=== PATIENT | male | born 1990 | race Caucasian/White ===

== ENCOUNTER 2016-08-20 16:31 | Emergency (ER) | payer BC ==
[2016-08-20 17:20] VITALS: BP 108/63; PULSE 78; RESP 18; TEMP 98.3
[2016-08-20] MEDS ORDERED: IBUPROFEN 600 MG TAB PO STA (17:25)
--- NOTE | 2016-08-20 17:31 | ED ---
General Adult HPI - General Chief complaint: Extremity Injury, Upper Stated complaint: Pulled Muscle in Chest Time Seen by Provider: 08/20/16 17:22 Source: patient, RN notes reviewed Mode of arrival: ambulatory - History of Present Illness Initial comments: This is a 24-year-old male presents with a muscle pain to the left side chest. Patient states he was lifting a couch last night when he put the couch back down he felt a pulled muscle sensation, but he kept lifting. Patient states pain is worse with twisting, reaching his left arm behind him and with taking a deep breath. Patient did not take anything for the pain. Patient denies any shortness of breath, radiation of the pain or numbness/weakness/tingling. Patient denies any recent fever, chills, chest pain, abdominal pain, nausea/ vomiting/diarrhea, back pain, numbness, tingling, hematuria, headache, or visual changes, or any other complaints. - Related Data Allergies Allergy/AdvReac Type Severity Reaction Status Date / Time No Known Allergies Allergy Verified 08/20/16 17:20 Review of Systems ROS Statement: Those systems with pertinent positive or pertinent negative responses have been documented in the HPI. ROS Other: All systems not noted in ROS Statement are negative. Past Medical History Past Medical History: No Reported History History of Any Multi-Drug Resistant Organisms: None Reported Past Surgical History: No Surgical Hx Reported Past Psychological History: No Psychological Hx Reported Smoking Status: Never smoker Past Alcohol Use History: None Reported Past Drug Use History: None Reported General Exam - General Exam Comments Initial Comments: General: The patient is awake and alert, in no distress, and does not appear acutely ill. Neck: The neck is supple, there is no tenderness or JVD. Cardiovascular: There is a regular rate and rhythm. No murmur, rub or gallop is appreciated. Respiratory: Lungs are clear to auscultation, respirations are non-labored, breath sounds are equal. No wheezes, stridor, rales, or rhonchi. Musculoskeletal: Patient has tenderness to the left side chest with twisting to the left and with extension of the left upper extremity. No erythema, ecchymosis or swelling. There is no rash. Patient has full range of motion, strength 5/5 and Sensation intact. Radial pulses 2+ bilaterally. Neurological: A&O x 3. CN II-XII intact, There are no obvious motor or sensory deficits. Coordination appears grossly intact. Speech is normal. Skin: Skin is warm and dry and no rashes or lesions are noted. Psychiatric: Normal mood and affect. Course Vital Signs 08/20/16 17:16 Temperature 98.3 F Pulse Rate 78 Respiratory 18 Rate Blood Pressure 108/63 O2 Sat by Pulse 98 Oximetry Medical Decision Making - Medical Decision Making This is a 22-year-old male with muscular pain to the left chest. On physical exam Patient has tenderness to the left side chest with twisting to the left and with extension of the left upper extremity. No erythema, ecchymosis or swelling. There is no rash. Patient has full range of motion, strength 5/5 and Sensation intact. Radial pulses 2+ bilaterally. Chest x-ray is done and reviewed showing: There is no focal airspace opacity, pleural effusion, or pneumothorax seen. The cardiac silhouette size and normal limits. The osseous structures are intact. No acute process. Reported by Dr. Nunez. Patient was given Motrin in the EC today. Discussed ice and heating pads to the area and continuation of Motrin and Tylenol for pain. I discussed the patient to refrain from activities that cause increased pain to allow healing. I discussed return parameters. Discussed that patient should follow up with PCP in one to 2 days or return to the [facility] for any worsening symptoms or for any further concerns. Patient was receptive to this plan and patient will be discharged home. Disposition Clinical Impression: Muscle strain Disposition: HOME SELF-CARE Condition: Good Instructions: Musculoskeletal Pain (ED) Additional Instructions: Please continue Tylenol and Motrin for pain. Please use ice or heating pads to the area. Please refrain from lifting anything until pain subsides. Please use medication as discussed. Please follow-up with family doctor in the next 2 days of symptoms have not improved. Please return to emergency room if the symptoms increase or worsen or for any other concerns. Referrals: Walker Garcia MD [Primary Care Provider] - 1-2 days Time of Disposition: 17:44
--- NOTE | 2016-08-20 17:39 | XR ---
EXAMINATION TYPE: XR chest 2V DATE OF EXAM: 08/20/2016 5:31 PM COMPARISON: NONE HISTORY: Left-sided chest pain. TECHNIQUE: Frontal and lateral views of the chest are obtained. FINDINGS: There is no focal air space opacity, pleural effusion, or pneumothorax seen. The cardiac silhouette size is within normal limits. The osseous structures are intact. IMPRESSION: No acute process.
== END 2016-08-20 17:51 | disposition home or self-care (01) ==
LOC: EC 16:31
DX: S29.011A Strain of muscle and tendon of front wall of thorax, initial encounter (principal); X50.0XXA Overexertion from strenuous movement or load, initial encounter
CPT/HCPCS: 71020; 99283

== ENCOUNTER 2018-12-26 17:23 | Emergency (ER) | payer BC ==
[2018-12-26 17:43] VITALS: RESP 18
--- NOTE | 2018-12-26 18:09 | ED ---
General Adult HPI - General Chief complaint: Urogenital Stated complaint: Swelling in groin Time Seen by Provider: 12/26/18 17:52 Source: patient Mode of arrival: ambulatory Limitations: no limitations - History of Present Illness Initial comments: Dictation was produced using [employer] dictation software. please excuse any grammatical, word or spelling errors. Chief Complaint: 28-year-old male presents with left groin pain 1 day. History of Present Illness: 28-year-old male presents with groin pain 1 day. Patient states pain is at his left groin area just left to the shaft of his penis. 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 Patient is concerned he has a hernia. Patient also complaining of some constitutional symptoms including fever and chills. Patient has any abdominal pain. Patient states his emesis Nonbilious. Denies any testicular pain. Denies any overt sick contacts. No sore throat. No rash. Patient is sexually active and monogamous with his . No concerns of sexual transmitted disease at this time. The ROS documented in this emergency department record has been reviewed and confirmed by me. Those systems with pertinent positive or negative responses have been documented in the HPI. All other systems are other negative and/or noncontributory. PHYSICAL EXAM: General Impression: Alert and oriented x3, not in acute distress HEENT: Normocephalic atraumatic, extra-ocular movements intact, pupils equal and reactive to light bilaterally, mucous membranes moist. Cardiovascular: Heart regular rate and rhythm, S1&S2 audible, no murmurs, rubs or gallops Chest: Lungs clear to auscultation bilaterally, no rhonchi, no wheeze, no rales Abdomen: Bowel sounds present, abdomen soft, non-tender, non-distended, no organomegaly Musculoskeletal: Pulses present and equal in all extremities, no peripheral edema Motor: no focal deficits noted Neurological: CN II-XII grossly intact, no focal motor or sensory deficits noted Skin: Intact with no visualized rashes Psych: Normal affect and mood exam: Multiple warts to the penis that are asymptomatic. Patient does have pea-sized lymphadenopathy at the left groin area. No palpable mass with Valsalva. Testicles are nontender bilaterally. ED course: 28-year-old male presents with left groin pain. Clinical presentation consistent with left groin lymphadenopathy. Upon arrival are within acceptable limits. Urinalysis is unremarkable. There is 4+ ketones in his urine. There is no glucose. Signs of urinary tract infection. Clinical presentation consistent with lymphadenopathy. Patient told that this should be self limiting and should go away on its own. Patient is told to maintain good hydration. Advised to follow-up with primary care physician upon discharge. Return premises discussed. Patient understandable and agreeable to disposition. - Related Data Home Medications Medication Instructions Recorded Confirmed No Known Home Medications 12/26/18 12/26/18 Allergies Allergy/AdvReac Type Severity Reaction Status Date / Time No Known Allergies Allergy Verified 12/26/18 18:29 Review of Systems ROS Statement: Those systems with pertinent positive or pertinent negative responses have been documented in the HPI. ROS Other: All systems not noted in ROS Statement are negative. Past Medical History Past Medical History: No Reported History History of Any Multi-Drug Resistant Organisms: None Reported Past Surgical History: No Surgical Hx Reported Past Psychological History: No Psychological Hx Reported Smoking Status: Never smoker Past Alcohol Use History: None Reported Past Drug Use History: None Reported General Exam Limitations: no limitations Course Vital Signs 12/26/18 12/26/18 17:39 18:00 Temperature 99.9 F H 99.8 F H Pulse Rate 96 Respiratory 18 Rate Blood Pressure 106/65 105/72 O2 Sat by Pulse 97 97 Oximetry Medical Decision Making - Lab Data Lab Results 12/26/18 Range/Units 18:08 Urine Color Yellow Urine Appearance Clear (Clear) Urine pH 6.0 (5.0-8.0) Ur Specific [place] 1.033 (1.001-1.035) Urine Protein 1+ H (Negative) Urine Glucose (UA) Negative (Negative) Urine Ketones 4+ H (Negative) Urine Blood Negative (Negative) Urine Nitrite Negative (Negative) Urine Bilirubin Negative (Negative) Urine Urobilinogen <2.0 (<2.0) mg/dL Ur Leukocyte Esterase Negative (Negative) Urine RBC 1 (0-5) /hpf Urine WBC 1 (0-5) /hpf Ur Squamous Epith Cells <1 (0-4) /hpf Urine Bacteria Rare H (None) /hpf Urine Mucus Many H (None) /hpf Disposition Clinical Impression: Lymphadenopathy Disposition: HOME SELF-CARE Condition: Good Instructions (If sedation given, give patient instructions): Lymphadenopathy (ED) Is patient prescribed a controlled substance at d/c from ED?: No Referrals: Clovis Broderick MD [Primary Care Provider] - 1-2 days Time of Disposition: 19:01
[2018-12-26 18:14] VITALS: TEMP 99.8
[2018-12-26 18:17] LABS: Appearance,Urine Clear (Clear); Bacteria,Urine Rare /hpf; Bilirubin,Urine Negative (Negative); Blood,Urine Negative (Negative); Color,Urine Yellow; Glucose,Urine (UA) Negative (Negative); Ketones,Urine 4+ (Negative); Leukocyte Esterase,Urine Negative (Negative); Mucus,Urine Many /hpf; Nitrite,Urine Negative (Negative); Protein,Urine 1+ (Negative); RBC,Urine 1 /hpf (0-5); Specific Gravity,Urine 1.033 (1.001-1.035); Squamous Epithelial Cell,Urine <1 /hpf (0-4); Urobilinogen,Urine <2.0 mg/dL (<2.0); WBC,Urine 1 /hpf (0-5)
[2018-12-26 19:07] VITALS: BP 105/70; PULSE 88
== END 2018-12-26 19:07 | disposition home or self-care (01) ==
LOC: EC 17:23
DX: R59.0 Localized enlarged lymph nodes (principal); A63.0 Anogenital (venereal) warts; R82.4 Acetonuria; R10.32 Left lower quadrant pain; R50.9 Fever, unspecified; R11.10 Vomiting, unspecified
CPT/HCPCS: 81001; 87086; 99283

== ENCOUNTER → 2022-12-06 | Outpatient (CLI) | payer BC ==
--- NOTE | 2022-12-18 09:20 | P.HOLTER ---
48 hour Holter monitor shows sinus mechanism and sinus tachycardia upto 167 beats a minute No arrhythmias
--- NOTE | 2022-12-20 08:49 | HM ---
48 hour Holter monitor shows sinus mechanism and sinus tachycardia up to 167 beats a minute No arrhythmias MTDD
== END | disposition home or self-care (01) ==
LOC: RADECHMAIN 08:33
PROVIDERS: ATTEND Family Medicine
DX: R00.0 Tachycardia, unspecified (principal); R00.2 Palpitations
CPT/HCPCS: 93225; 93226